=== PATIENT | female | born 1980 | race Caucasian/White ===

== ENCOUNTER 2019-12-20 08:01 | Emergency (ER) | payer BC, SELFPAY ==
[2019-12-20 08:05] VITALS: BP 151/93; PULSE 84; RESP 16; TEMP 36.3; O2SAT 100
--- NOTE | 2019-12-20 08:36 | ED.BACK ---
HPI - Back Pain/Injury General Chief Complaint: Back Pain/Injury Stated Complaint: back pain Time Seen by Provider: 12/20/19 08:07 History of Present Illness HPI Narrative: Pt is a 39 y/o female presenting to the ED c/o back pain radiating to LUE. Pt reports she was moving around in bed this morning when she suddenly started experiencing middle upper back pain radiating to her LUE. Pt states the pain is worsened with movement and denies any known injury to her back. Pt notes she has a Hx of a pinched nerve in her neck about 6 years ago, but states she has never had this severe of pain previously. Pt notes she regularly sees a Chiropractor, noting she was supposed to see one yesterday but did not. Pt also reports nausea, but denies fever. Pt states he has not taken any pain medications. Pertinent past history: prior back pain (Pinched nerve in neck) Onset (ago): unknown (This morning) Radiation: other (LUE) Associated symptoms: other (Nausea) Related Data Home Medications Medication Instructions Recorded Confirmed sertraline [Zoloft] 50 mg PO DAILY 12/20/19 Allergies Allergy/AdvReac Type Severity Reaction Status Date / Time hydrocodone AdvReac Severe Dizziness Verified 12/20/19 08:09 oxycodone AdvReac Severe Dizziness Verified 12/20/19 08:09 Review of Systems Review of Systems: All systems reviewed & are unremarkable except as noted in HPI and below Constitutional: Constitutional: Denies fever(s) Gastrointestinal: Gastrointestinal: Reports nausea Musculoskeletal: Musculoskeletal: Reports back pain (Middle upper radiating to LUE) [facility] Past Medical History Medical History Anxiety Depression GERD (gastroesophageal reflux disease) HTN (hypertension) IBS (irritable bowel syndrome) UTI (urinary tract infection) Surgical History Surgical History No significant past surgical history Family History Family History Other Family history of chronic obstructive pulmonary disease Family history of congestive heart failure Family history of malignant melanoma Social History Social History Smoking status: Never smoker Alcohol intake: never Gender identity (if verbalized by the patient): Female Exam Narrative: Exam Narrative: Exam is limited due to pt refusing to sit up during examination. Const: General: healthy appearing, no acute distress and alert Nutritional Appearance: well nourished HENMT: Mouth: Yes lip normal Eyes: Conjunctivae: conjunctivae normal Resp: Effort & Inspection: normal respiratory effort Back/Spine/Pelvis: Other: Unable to assess due to pt refusing to sit up during examination. Skin: General skin exam: normal color Other: warm; Dry Neuro: General: patient oriented x3 Speech: normal speech Extrem: General: full ROM Psych: Mental Status: mental status grossly normal Affect: normal affect Course Vital Signs Vital signs: Vital Signs Temperature 36.3 C L 12/20/19 08:05 Pulse Rate 84 12/20/19 08:05 Respiratory Rate 16 12/20/19 08:05 Blood Pressure 151/93 H 12/20/19 08:05 Pulse Oximetry 100 12/20/19 08:05 Temperature 36.3 C L 12/20/19 08:05 Pulse Rate 84 12/20/19 08:05 Respiratory Rate 16 12/20/19 08:05 Blood Pressure 151/93 H 12/20/19 08:05 Pulse Oximetry 100 12/20/19 08:05 MDM - Back Pain/Injury MDM Narrative Medical decision making narrative: She has a h/o similar pain. She has no injury, or red flag symptoms requiring imaging. Pain improved with valium and toradol. No indication for narcotic pain medications at this time. Differential Diagnosis Differential diagnosis: Likely thoracic back pain Medical Records Attestation: I reviewed the patient's medical records. Lab Data Attestation: I reviewed the patient's lab results. Discharge Plan Discharge Cli
[2019-12-20] MEDS: KETOROLAC 30 MG/ML VIAL (*BKC) IV PUSH (08:53)
== END 2019-12-20 11:33 | disposition home or self-care (01) ==
PROVIDERS: Emergency Provider Emergency Medicine; PCP Internal Medicine
DX: M54.6 Pain in thoracic spine (principal); F41.9 Anxiety disorder, unspecified; F32.9 Major depressive disorder, single episode, unspecified; K21.9 Gastro-esophageal reflux disease without esophagitis; I10 Essential (primary) hypertension; K58.9 Irritable bowel syndrome, unspecified; Z87.440 Personal history of urinary (tract) infections
CPT/HCPCS: 96374; 96375; 99284; J1885; J3360

== ENCOUNTER 2020-03-25 10:02 | Outpatient (CLI) | payer BC, SELFPAY ==
--- NOTE | ~2020-03-25 | MR_ITS ---
EXAMINATION: MR ankle LT wo con DATE: 03/25/2020 12:40 INDICATION: Left ankle pain TECHNIQUE: Magnetic resonance imaging (MRI) of the left ankle was performed without intravenous contr ast. Sequences included sagittal, coronal, and axial proton-density weighted fast spin echo without a nd with fat saturation. COMPARISON: None. FINDINGS: Medial ankle ligaments: Deep and superficial deltoid ligaments as well as the spring ligament are normal. Lateral ankle ligaments: The anterior and posterior inferior tibiofibular ligaments are normal. The anterior talofibular, calc aneofibular and posterior talofibular ligaments are normal. Tendons: Achilles tendon is normal. Small amount of fluid and synovitis extending along the peroneal tendon sh eath consistent with moderate tenosynovitis. Mild peroneus longus tendinopathy without discrete tear. Longitudinal split tear of the peroneus brevis tendon beginning above level of the retromalleolar gr oove with the paraspinous brevis tendon forming a U-shaped configuration encompassing greater than 27 0 degrees of the peroneus longus tendon. There is mild tendinopathy along the portion of the peroneus brevis tendon along the medial side of the peroneus longus tendon. There is severe tendinopathy and likely partial-thickness tear centered near the distal tip of the lateral malleolus involving the por tion of the tendon anterior and lateral to the peroneus longus tendon. The tibialis anterior and exte nsor hallucis longus and extensor digitorum longus tendons are normal. Small amount of fluid consiste nt with mild tenosynovitis extending along the normal-appearing tibialis posterior and flexor digitor um longus tendons. The flexor hallucis longus tendon is normal. Plantar fascia: Plantar aponeurosis is normal. Bones/other: Bone alignment is normal. Normal marrow signal throughout with no fracture, reactive edema or patholo gic marrow replacing process. Joint spaces are normal. Fluid: Physiologic amount fluid in the joint spaces. 5 x 9 x 4 mm ganglion cyst arising from the naviculocun eiform joint located along the undersurface of the tibialis anterior tendon. IMPRESSION: 1. Moderate peroneal tenosynovitis with longitudinal split tear of the peroneus brevis tendon with se natalie tendinopathy and likely partial-thickness tear along the lateral portion of the tendon near the tip of the lateral malleolus. 2. Mild tendinopathy without discrete tear of the peroneus longus tendon. 3. Mild tenosynovitis along the normal tibial is posterior and flexor digitorum longus tendons. Reviewed, dictated and finalized at location [facility]. IMPRESSION: 1. Moderate peroneal tenosynovitis with longitudinal split tear of the peroneus brevis tendon with severe tendinopathy and likely partial-thickness tear along the lateral portion of the tendon near the tip of the lateral malleolus. 2. Mild tendinopathy without discrete tear of the peroneus longus tendon. 3. Mild tenosynovitis along the normal tibial is posterior and flexor digitorum longus tendons.
== END 2020-03-25 10:03 | disposition home or self-care (01) ==
DX: M25.372 Other instability, left ankle (principal); M65.872 Other synovitis and tenosynovitis, left ankle and foot
CPT/HCPCS: 73721

== ENCOUNTER 2020-06-11 15:19 | Outpatient (CLI) | payer BC, SELFPAY ==
--- NOTE | ~2020-06-11 | MM_ITS ---
EXAMINATION: MM screening dusty BI w nabil HISTORY: Screening TECHNIQUE: Craniocaudal and mediolateral oblique 3-D tomosynthesis images were obtained and synthetic 2-D images were generated. CAD analysis was submitted and interpreted. COMPARISON: No prior mammogram is available for comparison at this institution. BREAST PARENCHYMAL COMPOSITION: There are scattered areas of fibroglandular density. FINDINGS: There is a cluster of nonspecific calcifications in the upper outer quadrant of the right b reast. Without evidence for malignancy. IMPRESSION: 1. Cluster of nonspecific calcifications, upper outer quadrant of the right breast. 2. Magnification views are recommended. BI-RADS Category 0: Incomplete: Needs additional imaging evaluation. Reviewed, dictated and finalized at location [facility]. IMPRESSION: 1. Cluster of nonspecific calcifications, upper outer quadrant of the right sheri ast. 2. Magnification views are recommended. BI-RADS Category 0: Incomplete: Needs additional imaging evaluation.
== END 2020-06-11 15:20 | disposition home or self-care (01) ==
LOC: ANHIMG 15:21
PROVIDERS: Visit Provider Obstetrics & Gynecology
DX: Z12.31 Encounter for screening mammogram for malignant neoplasm of breast (principal); R92.8 Other abnormal and inconclusive findings on diagnostic imaging of breast
CPT/HCPCS: 77063; 77067

== ENCOUNTER 2020-06-15 12:16 | Outpatient (CLI) | payer BC, SELFPAY ==
--- NOTE | ~2020-06-15 | MM_ITS ---
EXAMINATION: MM diagnostic mammo unilat RT HISTORY: Right breast calcifications TECHNIQUE: Additional 3-D tomosynthesis images of the right breast were performed and synthetic 2-D i mages were generated. CAD analysis was submitted and interpreted. COMPARISON: 06/11/2020 BREAST PARENCHYMAL COMPOSITION: Breast composed of scattered areas of fibroglandular density. FINDINGS: There is a cluster of indeterminate calcifications in the upper outer quadrant of the right breast which are not specifically benign. No discrete mass or architectural distortion is seen. IMPRESSION: 1. Cluster of indeterminate right breast calcifications, upper outer quadrant. BI-RADS CATEGORY 4-SUSPICIOUS ABNORMALITY RECOMMENDATION: Stereotactic right breast biopsy recommended. Reviewed, dictated and finalized at location [facility].
== END 2020-06-15 12:17 | disposition home or self-care (01) ==
PROVIDERS: Visit Provider Obstetrics & Gynecology
DX: R92.1 Mammographic calcification found on diagnostic imaging of breast (principal)
CPT/HCPCS: 77065

== ENCOUNTER 2020-06-25 10:08 | Outpatient (CLI) | payer BC, SELFPAY ==
--- NOTE | ~2020-06-25 | MM_ITS ---
MM post biopsy diagnostic RT DATE: 06/25/2020 11:23 INDICATION: Immediate Poststereotactic biopsy mammogram TECHNIQUE: Digital ML and CC exposures COMPARISON: 06/11/2020 bilateral digital screening mammogram FINDINGS: There is subcutaneous emphysema within the anterior upper outer right breast following ster eotactic biopsy. Most microcalcifications of interest have been removed but a small minority remain. The biopsy marker has migrated approximately 1-1.5 cm medial to the biopsy site. IMPRESSION: A few microcalcifications remain in the upper outer quadrant; the majority of microcalcif ications have been successfully removed by stereotactic biopsy. Reviewed, dictated and finalized at [facility]. Reviewed, dictated and finalized at location [facility]. IMPRESSION: A few microcalcifications remain in the upper outer quadrant; the m ajority of microcalcifications have been successfully removed by stereotactic b iopsy.
--- NOTE | ~2020-06-25 | MM_ITS ---
EXAMINATION: MM stereotactic bx RT, Specimen Radiograph, Tissue Marker Clip Placement, Unilateral Nidhi mogram DATE: 06/25/2020 11:22 INDICATION: Abnormal mammogram: Upper outer quadrant grouped indeterminate microcalcifications. TECHNIQUE AND FINDINGS: The risks and potential benefits of the procedure were discussed with the patient and written informe d consent was obtained. Timeout procedure was performed. The patient was placed in the prone position on the dedicated stereotactic table with the right breast in lateral medial compression, and the are a of interest was localized and targeted utilizing digital imaging with stereotaxis. After sterile preparation of the skin, 1% lidocaine was utilized for local anesthesia at the skin pun cture site and 1% lidocaine with epinephrine was utilized for deeper local anesthesia about the biops y site. A 9G [employer] vacuum assisted biopsy needle was advanced to the level of the calcification of i nterest from a lateral approach utilizing stereotactic guidance and a total of 14 tissue core biopsie s were obtained. A specimen radiograph demonstrates that the calcifications of interest are included within the tissue cores. A tissue marker clip was then placed at the biopsy site. A digital mammographic exposure co nfirmed the successful deployment of the biopsy marker. The needle was removed and hemostasis was ac hieved. A sterile bandage was applied. The patient tolerated the procedure well and there is no jeanne dence of significant immediate complication. The patient was given verbal as well as written postpro cedural instructions prior to discharge from the department. Tissue cores were submitted to surgical pathology for histologic analysis. A 2-view right unilateral digital mammogram was obtained post procedure, demonstrating the tissue mar ker clip in expected position. IMPRESSION: 1. Successful stereotactic biopsy of upper outer quadrant right breast grouped microcalcifications, followed by tissue marker clip placement. Please refer to pathology report for histologic analysis. Reviewed, dictated and finalized at [facility]. Reviewed, dictated and finalized at location [facility]. IMPRESSION: 1. Successful stereotactic biopsy of upper outer quadrant right breast groupe d microcalcifications, followed by tissue marker clip placement. Please refer to pathology report for histologic analysis.
--- NOTE | ~2020-06-25 | MM_ITS ---
MM stereotactic specimen RT DATE: 06/25/2020 11:24 INDICATION: Stereotactic biopsy of upper outer quadrant right breast grouped indeterminate microcalci fications TECHNIQUE: Single digital noncompression mammographic exposure of stereotactic biopsy specimen tissue COMPARISON: 06/11/2020 bilateral digital screening mammogram 06/15/2020 diagnostic right digital mammogram FINDINGS: Numerous microcalcifications of interest are present within the specimen tissue. IMPRESSION: Successful stereotactic biopsy of upper outer quadrant right breast indeterminate grouped microcalcifications Reviewed, dictated and finalized at [facility]. Reviewed, dictated and finalized at location A.
== END 2020-06-25 10:09 | disposition home or self-care (01) ==
PROVIDERS: Visit Provider Obstetrics & Gynecology
DX: R92.8 Other abnormal and inconclusive findings on diagnostic imaging of breast (principal); C50.411 Malignant neoplasm of upper-outer quadrant of right female breast
CPT/HCPCS: 19081; 77065; 88305

== ENCOUNTER → 2021-08-25 08:36 | Outpatient (CLI) | payer BC, SELFPAY ==
--- NOTE | ~2021-08-25 | US_ITS ---
US retroperitoneal comp 08/25/2021 09:16 Procedure: Realtime transabdominal ultrasound of the kidneys and bladder. Indication: Chronic kidney disease. Elevated creatinine. Comparison: Ultrasound dated 09/28/2018 Findings: Renal echotexture is normal bilaterally without hydronephrosis, contour deforming mass or r enal calculus. The right kidney measures 10.7 cm and left kidney measures 11.3 cm. Bladder within no rmal limits. Impression: 1: Unremarkable renal ultrasound. No stones, masses or hydronephrosis. Reviewed, dictated and finalized at location B. Impression: 1: Unremarkable renal ultrasound. No stones, masses or hydronephrosis.
== END ==
PROVIDERS: PCP Internal Medicine; Visit Provider Specialist
DX: N18.2 Chronic kidney disease, stage 2 (mild) (principal)
CPT/HCPCS: 76770